=== PATIENT | female | born 1960 | race Caucasian/White ===

== ENCOUNTER → 2017-01-22 | Outpatient (CLI) | payer MEDICAID | END | disposition home or self-care (01) | LOC: CFH 13:33 | PROVIDERS: ATTEND Genetic Counselor, MS | DX: Z12.31 Encounter for screening mammogram for malignant neoplasm of breast (principal); I08.1 Rheumatic disorders of both mitral and tricuspid valves; I37.1 Nonrheumatic pulmonary valve insufficiency | CPT/HCPCS: 93306; G0202 ==

== ENCOUNTER → 2017-02-18 | Outpatient (CLI) | payer MEDICAID | END | disposition home or self-care (01) | LOC: CFH 16:24 | PROVIDERS: ATTEND Genetic Counselor, MS | DX: E04.1 Nontoxic single thyroid nodule (principal); N95.9 Unspecified menopausal and perimenopausal disorder; E03.9 Hypothyroidism, unspecified | CPT/HCPCS: 76536 ==

== ENCOUNTER → 2017-03-05 | Outpatient (CLI) | payer MEDICAID ==
[~2017-03-05] MED LIST: LIDOCAINE 1%, 20ML ONE
== END | disposition home or self-care (01) ==
LOC: RAD 13:56
PROVIDERS: ATTEND Genetic Counselor, MS
DX: E04.1 Nontoxic single thyroid nodule (principal)
CPT/HCPCS: 10022; 76942; 88173; J3490

== ENCOUNTER → 2017-04-17 | Outpatient (CLI) | payer MEDICAID ==
[~2017-04-17] MED LIST changes: +LEVO50TA PO; -LIDOCAINE 1%, 20ML ONE
== END ==
LOC: STAR 13:55
PROVIDERS: ATTEND Surgery
DX: Z02.9 Encounter for administrative examinations, unspecified (principal)

== ENCOUNTER 2017-04-22 05:54 | Day surgery (SDC) | payer MEDICAID ==
[~2017-04-22] VITALS: Ht 177.8 cm; Wt 54.6 kg
[2017-04-22] MEDS ORDERED: LACTATED RINGERS 1,000 ML IV SCH (07:11)
[2017-04-22 07:15] VITALS: BP 134/84
[2017-04-22] MEDS ORDERED: LIDOCAINE 1%, 2ML SQ PRN (07:30)
[2017-04-22] MEDS ORDERED: MIDAZOLAM 1 MG/ML, 2ML ONE (07:52)
[2017-04-22] MEDS ORDERED: HYDROmorphone 1 MG/ML, 1ML ONE (07:52)
[2017-04-22] MEDS ORDERED: FENTANYL PF 100 MCG/2ML ONE ×2 (07:52→09:09)
[2017-04-22] MEDS ORDERED: ONDANSETRON 2MG/ML, 2ML ONE (07:59)
[2017-04-22] MEDS ORDERED: DEXAMETHASONE 4 MG/ML, 1ML ONE (07:59)
[2017-04-22] MEDS ORDERED: PROPOFOL 10 MG/ML, 20ML ONE (07:59)
[2017-04-22] MEDS ORDERED: SUCCINYLCHOLINE 20 MG/ML, 10ML ONE (07:59)
[2017-04-22] MEDS ORDERED: OXYcodone 5 MG/5 ML ORAL.SOL UDC PO PRN (08:00)
[2017-04-22] MEDS ORDERED: ACETAMINOPHEN 325 MG TABLET PO PRN (08:00)
[2017-04-22] MEDS ORDERED: HYDROmorphone 1 MG/ML, 1ML IV PRN (08:00)
[2017-04-22] MEDS ORDERED: OXYcodone 5 MG/5 ML ORAL.SOL UDC ONE (09:10)
[2017-04-22] MEDS ORDERED: ACETAMINOPHEN 650 MG/20.3 ML UDC ONE (09:10)
[2017-04-22] MEDS: FENTANYL PF 100 MCG/2ML IV PRN ×3 (09:14→09:34)
== END 2017-04-22 11:30 ==
LOC: OUT 05:54
PROVIDERS: ATTEND Surgery
DX: D34 Benign neoplasm of thyroid gland (principal); E04.1 Nontoxic single thyroid nodule; F41.9 Anxiety disorder, unspecified; E03.9 Hypothyroidism, unspecified; Z72.89 Other problems related to lifestyle; Z90.710 Acquired absence of both cervix and uterus; Z98.890 Other specified postprocedural states
CPT/HCPCS: 60220; 88307; 88333; C1760; J0330; J1100; J1170; J2250; J2405; J2704; J3010